=== PATIENT | female | born 2000 | race Caucasian/White ===

== ENCOUNTER 2018-11-10 11:26 | Emergency (ER) | payer OTHER ==
[~2018-11-10] VITALS: Ht 170.2 cm; Wt 70.9 kg
[2018-11-10 11:33] VITALS: TEMP 98.5
[2018-11-10 12:09] LABS: HEMATOCRIT 41.6 % (35.0-45.0); HEMOGLOBIN 14.3 g/dl (12.0-15.0); MEAN CELL VOLUME 87 fl (80.0-95.0); MEAN CORPUSCULAR HEMOGLOBIN 30 pg (26.0-32.0); MEAN CORPUSCULAR HGB CONC 34 g/dl (33.0-37.0); PLATELET COUNT 257 K/mm3 (130-400); REDCELL DISTRIBUTION WIDTH-CV 12.6 % (11.5-14.5)
[2018-11-10 12:26] LABS: ALBUMIN 4.5 gm/dL (3.5-5.0); BILIRUBIN,TOTAL 0.8 mg/dL (0.0-1.0); C-REACTIVE PROTEIN 1.6 mg/dL (0.0-0.9); CALCIUM 9.1 mg/dL (8.4-10.2); CREATININE, serum 0.88 mg/dL (0.52-1.25); POTASSIUM 3.8 mmol/L (3.4-5.0); TOTAL PROTEIN 7.7 gm/dL (6.4-8.2)
[2018-11-10 12:56] LABS: COLLECTION METHOD CLEAN CATCH
[2018-11-10 12:58] LABS: BAND 16 % (0-10); LYMPHOCYTE 2 % (20.0-51.0); NEUTROPHILS 78 % (42.0-75.2); PLATELET ESTIMATE NORMAL (NORMAL)
[2018-11-10 13:09] LABS: MUCOUS Present /lpf; PH 7 (5-8); SQUAMOUS EPITHELIAL 0-2 /hpf; URINE APPEARANCE Clear; URINE BACTERIA None Seen /hpf; URINE BILIRUBIN Negative (NEGATIVE); URINE BLOOD Negative (NEGATIVE); URINE COLOR Yellow; URINE GLUCOSE Negative (NEGATIVE); URINE KETONE 2+ (NEGATIVE); URINE LEUKOCYTE ESTERASE Negative (NEGATIVE); URINE NITRATE Negative (NEGATIVE); URINE PROTEIN(semi-quant) 1+ (NEGATIVE); URINE UROBILINOGEN Negative (NEGATIVE)
[2018-11-10] MEDS ORDERED: ADDERALL5 MG PO (14:00)
[2018-11-10 14:06] VITALS: BP 110/63; PULSE 82
== END 2018-11-10 14:17 | disposition home or self-care (01) ==
LOC: COL.ER 11:26
PROVIDERS: Physician Assistant
DX: R11.2 Nausea with vomiting, unspecified (principal); F90.9 Attention-deficit hyperactivity disorder, unspecified type
CPT/HCPCS: J0780; J1170; J2405; J7030

== ENCOUNTER 2020-08-17 23:03 | Emergency (ER) | payer OTHER ==
[~2020-08-17] VITALS: Ht 170.2 cm; Wt 68.2 kg
[~2020-08-17 23:03] MED LIST: ADDERALL5 MG PO
[2020-08-17 23:16] VITALS: TEMP 97.7
[2020-08-18] MEDS ORDERED: ADDERALL XR25 MG PO (00:30)
[2020-08-18] MEDS ORDERED: LOESTRIN 24 FE1 TAB PO (00:31)
[2020-08-18] MEDS ORDERED: ZYRTEC 10MG10 MG PO (00:31)
[2020-08-18 01:58] VITALS: BP 121/82; PULSE 90
== END 2020-08-18 02:05 | disposition home or self-care (01) ==
LOC: COL.ER 23:03
DX: S93.402A Sprain of unspecified ligament of left ankle, initial encounter (principal); F90.9 Attention-deficit hyperactivity disorder, unspecified type; X50.1XXA Overexertion from prolonged static or awkward postures, initial encounter; Y92.009 Unspecified place in unspecified non-institutional (private) residence as the place of occurrence of the external cause